=== PATIENT | female | born 1980 | race Caucasian/White ===

== ENCOUNTER → 2017-01-14 | Outpatient (CLI) | payer BC ==
[~2017-01-14] MED LIST: ACHD5005 PO; CIPR500T78 PO; HYDR-3816 PO; IBUP-1773 PO
== END | disposition home or self-care (01) ==
LOC: LAB 08:14
PROVIDERS: ATTEND Specialist
DX: Z32.00 Encounter for pregnancy test, result unknown (principal)
CPT/HCPCS: 36415; 84702

== ENCOUNTER → 2017-11-14 | Outpatient (CLI) | payer BC ==
[2017-11-14 13:20] LABS: PHOSPHORUS 3.5 MG/DL (2.3-4.7)
== END ==
LOC: LAB 12:39
PROVIDERS: ATTEND Specialist
DX: Z32.00 Encounter for pregnancy test, result unknown (principal)
CPT/HCPCS: 36415; 84100; 84144; 84702

== ENCOUNTER 2017-12-12 10:22 | Emergency (ER) | payer BC ==
[~2017-12-12] VITALS: Ht 160 cm; Wt 79.4 kg
--- OUTSIDE RECORDS SUMMARY | 2017-12-12 10:29 | XMS REPORT | Continuity of Care Document ---
Author Author [facility] Organization [facility] Address Unknown Phone Unavailable Allergies Active Description Code Type Severity Reaction Onset Reported/Identified Relationship to Patient Clinical Status Yes No Known Drug Allergies [id number] Drug Allergy Unknown N/A 01/21/2015 Yes morphine [id number] Drug Allergy Unknown NAUSEA 01/31/2015 Medications There is no data. Problems Date Dx Coded Attending Type Code Diagnosis Diagnosed By 11/15/2014 FARHEEN LEACH DO Ot 625.8 11/15/2014 FARHEEN LEACH DO Ot 626.2 01/21/2015 FARHEEN LEACH DO Ot 625.8 01/21/2015 FARHEEN LEACH DO Ot 626.2 01/21/2015 FARHEEN LEACH DO Ot 620.2 01/21/2015 BRIAN WISE MD Ot 599.0 URIN TRACT INFECTION NOS 01/21/2015 BRIAN WISE MD Ot 620.2 OVARIAN CYST NEC/NOS 01/21/2015 BRIAN WISE MD Ot 789.04 ABDOMINAL PAIN, LEFT LOWER QUADRANT 01/21/2015 FARHEEN LEACH DO Ot 625.8 01/21/2015 FARHEEN LEACH DO Ot 626.2 01/21/2015 FENECH FARHEEN ENNIS Ot 620.2 01/21/2015 FENECH DOFARHEEN Ot 620.2 01/31/2015 FENECH FARHEEN ENNIS Ot 625.8 01/31/2015 FENECH DOFARHEEN Ot 626.2 01/31/2015 FENECH FARHEEN ENNIS Ot 620.2 02/06/2015 FARHEEN LEACH DO Ot 617.1 OVARIAN ENDOMETRIOSIS 02/06/2015 FARHEEN LEACH DO Ot 617.3 PELV PERIT ENDOMETRIOSIS 02/07/2015 FARHEEN LEACH DO Ot 625.8 02/07/2015 DARRELLECH FARHEEN ENNIS Ot 626.2 02/07/2015 FARHEEN LEACH DO Ot 620.2 02/07/2015 HAYLEE DOFARHEEN Ot 620.8 02/07/2015 DARRELLECH DO, FARHEEN Gonzalez Ot V72.83 02/09/2015 FARHEEN LEACH DO Ot 285.1 AC POSTHEMORRHAG ANEMIA 02/09/2015 FARHEEN LEACH DO Ot 568.81 HEMOPERITONEUM 04/09/2016 HAYLEE ENNIS, FARHEEN Gonzalez Ot 625.8 FEM GENITAL SYMPTOMS NEC 04/09/2016 HAYLEE DOFARHEEN Ot 626.2 EXCESSIVE MENSTRUATION 04/09/2016 DARRELLECH DO, FARHEEN Gonzalez Ot 620.2 OVARIAN CYST NEC/NOS 04/09/2016 DARRELLECH DO, FARHEEN Gonzalez Ot 620.8 NONINFL DIS OVA/ADNX NEC 04/09/2016 HAYLEE ENNIS, FARHEEN Gonzalez Ot V72.83 EXAM PRE-OPERATIVE NEC 04/27/2016 FARHEEN LEACH DO Ot Z00.00 ENCNTR FOR GENERAL ADULT MEDICAL EXAM W/ 04/28/2016 FARHEEN LEACH DO Ot R10.2 PELVIC AND PERINEAL PAIN 07/28/2016 HAYLEE ENNIS, FARHEEN Gonzalez Ot 625.8 FEM GENITAL SYMPTOMS NEC 07/28/2016 HAYLEE DO, FARHEEN Gonzalez Ot 626.2 EXCESSIVE MENSTRUATION 07/28/2016 HAYLEE DO, FARHEEN Gonzalez Ot 620.2 OVARIAN CYST NEC/NOS 07/28/2016 DARRELLECH DO, FARHEEN Gonzalez Ot 620.8 NONINFL DIS OVA/ADNX NEC 07/28/2016 DARRELLECH DO, FARHEEN Gonzalez Ot V72.83 EXAM PRE-OPERATIVE NEC 07/28/2016 FARHEEN LEACH DO Ot R10.2 PELVIC AND PERINEAL PAIN 07/28/2016 HAYLEE ENNIS, FARHEEN Gonzalez Ot Z00.00 ENCNTR FOR GENERAL ADULT MEDICAL EXAM W/ 08/03/2016 DEANNA KAM, PASCALE Mitchell Ot Z32.00 ENCOUNTER FOR TEST, RESULT UNK 08/06/2016 DEANNA KAM, PASCALE Mitchell Ot Z32.00 ENCOUNTER FOR TEST, RESULT UNK 08/18/2016 DEANNA KAM, PASCALE Mitchell Ot Z32.00 ENCOUNTER FOR TEST, RESULT UNK 01/16/2017 DEANNA KAM, PASCALE Mitchell Ot Z32.00 ENCOUNTER FOR TEST, RESULT UNK 01/27/2017 DEANNA KAM, PASCALE Mitchell Ot Z32.00 ENCOUNTER FOR TEST, RESULT UNK 11/17/2017 DEANNA KAM, PASCALE Mitchell Ot Z32.00 ENCOUNTER FOR TEST, RESULT UNK 11/30/2017 DEANNA KAM, PASCALE Mitchell Ot Z32.00 ENCOUNTER FOR TEST, RESULT UNK Procedures Code Description Performed By Performed On 54.19 LAPAROTOMY NEC 02/07/2015 Results Test Result Range Complete blood count (CBC) with automated white blood cell (WBC) differential - 04/09/16 12:52 Blood leukocytes automated count (number/volume) 8.2 10*3/uL 4.3-11.0 Blood erythrocytes automated count (number/volume) 4.64 10*6/uL 4.35-5.85 Venous blood hemoglobin measurement (mass/volume) 14.2 g/dL 11.5-16.0 Blood hematocrit (volume fraction) 42 % 35-52 Automated erythrocyte mean corpuscular volume 90 [foz_us] 80-99 Automated erythrocyte mean corpuscular hemoglobin (mass per erythrocyte) 31 pg 25-34 Automated erythrocyte mean corpuscular hemoglobin concentration measurement ( mass/volume) 34 g/dL 32-36 Automated erythrocyte distribution width ratio 12.4 % 10.0-14.5 Automated blood platelet count (count/volume) 285 10*3/uL 130-400 Automated blood platelet mean volume measurement 10.0 [foz_us] 7.4-10.4 Automated blood neutrophils/100 leukocytes 64 % 42-75 Automated blood lymphocytes/100 leukocytes 25 % 12-44 Blood monocytes/100 leukocytes 7 % 0-12 Automated blood eosinophils/100 leukocytes 3 % 0-10 Automated blood basophils/100 leukocytes 1 % 0-10 Blood neutrophils automated count (number/volume) 5.3 10*3 1.8-7.8 Blood lymphocytes automated count (number/volume) 2.1 10*3 1.0-4.0 Blood monocytes automated count (number/volume) 0.6 10*3 0.0-1.0 Automated eosinophil count 0.2 10*3/uL 0.0-0.3 Automated blood basophil count (count/volume) 0.1 10*3/uL 0.0-0.1 Comprehensive metabolic panel - 04/09/16 12:52 Serum or plasma sodium measurement (moles/volume) 139 mmol/L 135-145 Serum or plasma potassium measurement (moles/volume) 4.3 mmol/L 3.6-5.0 Serum or plasma chloride measurement (moles/volume) 105 mmol/L 98-107 Carbon dioxide 27 mmol/L 21-32 Serum or plasma anion gap determination (moles/volume) 7 mmol/L 5-14 Serum or plasma urea nitrogen measurement (mass/volume) 10 mg/dL 7-18 Serum or plasma creatinine measurement (mass/volume) 0.80 mg/dL 0.60-1.30 Serum or plasma urea nitrogen/creatinine mass ratio 13 NRG Serum or plasma creatinine measurement with calculation of estimated glomerular filtration rate > NRG Serum or plasma glucose measurement (mass/volume) 80 mg/dL 70-105 Serum or plasma calcium measurement (mass/volume) 9.4 mg/dL 8.5-10.1 Serum or plasma total bilirubin measurement (mass/volume) 0.7 mg/dL 0.1-1.0 Serum or plasma alkaline phosphatase measurement (enzymatic activity/volume) 48 U/L 40-136 Serum or plasma aspartate aminotransferase measurement (enzymatic activity/ volume) 22 U/L 5-34 Serum or plasma alanine aminotransferase measurement (enzymatic activity/volume ) 21 U/L 0-55 Serum or plasma protein measurement (mass/volume) 7.1 g/dL 6.4-8.2 Serum or plasma albumin measurement (mass/volume) 4.3 g/dL 3.2-4.5 Lipid 1996 panel - 04/09/16 12:52 Serum or plasma triglyceride measurement (mass/volume) 69 mg/dL <150 Serum or plasma cholesterol measurement (mass/volume) 173 mg/dL < 200 Serum or plasma cholesterol in HDL measurement (mass/volume) 57 mg/ dL 40-60 Cholesterol in LDL [mass/volume] in serum or plasma by direct assay 105 mg/dL 1-129 Serum or plasma cholesterol in VLDL measurement (mass/volume) 14 mg/ dL 5-40 Hemoglobin A1c - 04/09/16 12:52 Hemoglobin A1c 4.8 % 4.5-6.2 THYROID STIMULATING HORMONE - 04/09/16 12:52 THYROID STIMULATING HORMONE 1.24 u[iU]/mL 0.35-4.94 Serum or plasma choriogonadotropin measurement (units/volume) - 07/28/16 11:00 Serum or plasma choriogonadotropin measurement (units/volume) 2469 m [iU]/mL <5 Serum or plasma progesterone measurement (mass/volume) - 07/28/16 11:00 Serum or plasma progesterone measurement (mass/volume) 29.90 % NRG Serum or plasma choriogonadotropin measurement (units/volume) - 01/14/17 08:26 Serum or plasma choriogonadotropin measurement (units/volume) < m[iU ]/mL <5 Serum or plasma phosphate measurement (mass/volume) - 11/14/17 12:56 Serum or plasma phosphate measurement (mass/volume) 3.5 mg/dL 2.3-4.7 Serum or plasma choriogonadotropin measurement (units/volume) - 11/14/17 12:56 Serum or plasma choriogonadotropin measurement (units/volume) 1905 m [iU]/mL <5 Serum or plasma progesterone measurement (mass/volume) - 11/14/17 14:24 Serum or plasma progesterone measurement (mass/volume) 45.06 ng/mL NRG Encounters ACCT No. Visit Date/Time Discharge Status Pt. Type Provider Facility Loc./Unit Complaint [id number] 11/14/2017 12:39:00 11/14/2017 23:59:59 CLS Outpatient PASCALE HUERTA MD [facility] LAB SEE ORDER [id number] 01/14/2017 08:14:00 01/14/2017 23:59:59 CLS Outpatient PASCALE HUERTA MD [facility] LAB 232.00 [id number] 07/28/2016 10:43:00 07/28/2016 23:59:59 CLS Outpatient PASCALE HUERTA MD [facility] LAB Z32.00 [id number] 04/14/2016 14:17:00 04/14/2016 23:59:59 CLS Outpatient FARHEEN LEACH DO [facility] RAD ACUTE PELVIC PAIN [id number] 04/09/2016 12:32:00 04/09/2016 23:59:59 CLS Outpatient FARHEEN LEACH DO [facility] LAB GENERAL ADULT MEDICAL EXAM W/O ABNORMAL FINDINGS [id number] 02/07/2015 01:05:00 02/09/2015 08:13:00 DIS Inpatient FARHEEN LEACH DO [facility] LDRP HEMOPERITONEUM,POST OP LAPAROSCOPIC RSO [id number] 02/06/2015 06:58:00 02/06/2015 16:35:00 DIS Outpatient FARHEEN LEACH DO [facility] SDC RIGHT COMPLEX OVARIAN MASS [id number] 01/31/2015 08:37:00 01/31/2015 23:59:59 CLS Outpatient FARHEEN LEACH DO [facility] PREOP RIGHT COMPLEX OVARIAN MASS [id number] 01/21/2015 11:05:00 01/21/2015 14:08:00 DIS Emergency FRANDY KAM, BRIAN Anderson [facility] ER ABD CRAMPS [id number] 12/23/2014 10:10:00 12/23/2014 23:59:59 CLS Outpatient FARHEEN LEACH DO [facility] RAD OVARIAN CYST [id number] 10/31/2014 13:36:00 10/31/2014 23:59:59 CLS Outpatient FARHEEN LEACH DO [facility] RAD PELVIC PRESSURE, MENORRHAGIA
[2017-12-12] MEDS ORDERED: fentaNYL INJECTION 100 MCG/2 ML AMP ONE (11:46)
[2017-12-12 11:47] LABS: BASOPHILS # (AUTO) 0.1 10^3/uL (0.0-0.1); BASOPHILS % (AUTO) 1 % (0-10); EOSINOPHILS # (AUTO) 0.3 10^3/uL (0.0-0.3); EOSINOPHILS % (AUTO) 3 % (0-10); HEMATOCRIT 42 % (35-52); HEMOGLOBIN 14.4 G/DL (11.5-16.0); LYMPHOCYTES # (AUTO) 1.7 X 10^3 (1.0-4.0); LYMPHOCYTES % (AUTO) 16 % (12-44); MEAN CORPUSCULAR HEMOGLOBIN 31 PG (25-34); MEAN CORPUSCULAR HGB CONC 34 G/DL (32-36); MEAN CORPUSCULAR VOLUME 91 FL (80-99); MEAN PLATELET VOLUME 10.3 FL (7.4-10.4); MONOCYTES # (AUTO) 0.8 X 10^3 (0.0-1.0); MONOCYTES % (AUTO) 8 % (0-12); NEUTROPHILS # (AUTO) 7.6 X 10^3 (1.8-7.8); NEUTROPHILS % (AUTO) 72 % (42-75); PLATELET COUNT 358 10^3/uL (130-400); RED BLOOD COUNT 4.66 10^6/uL (4.35-5.85); RED CELL DISTRIBUTION WIDTH 12.3 % (10.0-14.5); WHITE BLOOD COUNT 10.5 10^3/uL (4.3-11.0)
[2017-12-12] MEDS ORDERED: fentaNYL INJECTION 100 MCG/2 ML AMP IVP ONE ×2 (12:00→14:00)
[2017-12-12 12:06] LABS: ALANINE AMINOTRANSFERASE 15 U/L (0-55); ALBUMIN 4.1 GM/DL (3.2-4.5); ALKALINE PHOSPHATASE 51 U/L (40-136); BILIRUBIN,TOTAL 0.4 MG/DL (0.1-1.0); BUN/CREATININE RATIO 11; CALCIUM 9.5 MG/DL (8.5-10.1); CARBON DIOXIDE 25 MMOL/L (21-32); CHLORIDE 108 MMOL/L (98-107); CREATININE SERUM 0.89 MG/DL (0.60-1.30); GFR ESTIMATED > 60; GLUCOSE 82 MG/DL (70-105); POTASSIUM 3.8 MMOL/L (3.6-5.0); SODIUM 141 MMOL/L (135-145); TOTAL PROTEIN 7.5 GM/DL (6.4-8.2)
--- NOTE | 2017-12-12 13:49 | Diagnostic Imaging Report ---
PROCEDURE: US OB SINGLE FETUS <14 WKS. TECHNIQUE: Multiple real-time grayscale images were obtained over the gravid uterus in various projections. INDICATION: Bleeding. History of embryo transfer in October 2017. COMPARISON: Pelvic ultrasound of 04/14/2016. FINDINGS: There is no intrauterine . The endometrium measures approximately 0.8 cm in thickness. No myometrial mass. There is no mass in either adnexa. The right ovary is not well seen. The left ovary is surgically absent per history. No free pelvic fluid. IMPRESSION: 1. No intrauterine or ectopic . 2. Findings are compatible with patient's reported miscarriage/failed . Dictated by: Dictated on workstation # [id number]
[2017-12-12] MEDS ORDERED: ONDANSETRON 4 MG/2 ML (SDV) Z0FRAN IVP ONE (14:00)
--- NOTE | 2017-12-12 15:02 | ED GU-Female ---
General Chief Complaint: -Female Stated Complaint: HAVING MISSCARIAGE, PAIN Nursing Triage Note: PT STATED SHE HAD EMBRYO TRANSLPLANTED ON 10/28. HAS HAD 4 ULTRASOUNDS SINCE AND ALL HAVE SHOWN NO BABY. PT STATES SHE BEGAN SPOTTING ON TUESDAY, AND BLEEDING AND PASSING CLOTS ON TUESDAY. PT STATES PAIN STARTED AROUND 1300 TUESDAY. PT STATES THE BLEEDING IS MINIMAL BUT DID PASS A CLOT THE SIZE OF HER PALM. PT IS DOING IVF IN [facility]. DOES NOT HAVE LOCAL DR. Nursing Sepsis Screen: No Definite Risk Source: patient Exam Limitations: no limitations History of Present Illness Date Seen by Provider: December 12, 2017 Time Seen by Provider: 11:35 Initial Comments This 37-year-old woman presents to the emergency room with vaginal bleeding and suspected miscarriage. She had an embryo transplant by her infertility specialist, Dr. Huerta on October 28. Since that time she has had for ultrasounds, none of which showed an embryo. She began spotting on Tuesday and Tuesday began bleeding. She passed a large clot last night. Today she began heavily cramping and rates her pain as 8/10. She also has had some nausea and vomiting. She had a temperature of 100.1 as well. Allergies and Home Medications Allergies Coded Allergies: morphine (Unverified Adverse Reaction, Unknown, NAUSEA, 01/31/15) Home Medications Hydrocodone Bit/Acetaminophen 1 Tab Tab, 2 TAB PO Q4H PRN for severe pain Prescribed by: FARHEEN GUTIERREZ on 02/06/15 1233 Hydrocodone/Acetaminophen 1 Each Tablet, 1 EACH PO Q4H PRN for PAIN-MODERATE TO SEVERE Prescribed by: BRITTANIE HORNER on 12/12/17 1516 Ibuprofen 600 Mg Tablet, 600 MG PO Q6H Prescribed by: FARHEEN GUTIERREZ on 02/06/15 1233 Ondansetron 4 Mg Tab.rapdis, 4 MG SL Q4H PRN for NAUSEA/VOMITING-1ST LINE Prescribed by: BRITTANIE HORNER on 12/12/17 1516 Patient Home Medication List Home Medication List Reviewed: Yes Review of Systems Constitutional: see HPI EENTM: no symptoms reported Respiratory: no symptoms reported Cardiovascular: no symptoms reported Gastrointestinal: see HPI Genitourinary: see HPI : Yes Musculoskeletal: no symptoms reported Skin: no symptoms reported Psychiatric/Neurological: No Symptoms Reported Endocrine: No Symptoms Reported Hematologic/Lymphatic: No Symptoms Reported Past Dtlbuhc-Ovfvmi-Imfwzv Hx Patient Social History Alcohol Use: Denies Use Recreational Drug Use: No 2nd Hand Smoke Exposure: No Recent Foreign Travel: No Contact w/Someone Who Travel: No Recent Infectious Disease Expo: No Physical Abuse: No Sexual Abuse: No Past Medical History Surgeries: Yes (OVARIAN CYSTECTOMY, gastric sleeve) Oophorectomy (Right) Respiratory: Yes Asthma Cardiac: No Neurological: No : Yes Reproductive Disorders: Yes (RIGHT COMPLEX OVARIAN MASS) Female Reproductive Disorders: Endometriosis, Ovarian Cyst Genitourinary: No Gastrointestinal: No Musculoskeletal: No Endocrine: No Cancer: No Psychosocial: No Nursing Suicide Risk Score: 0 Integumentary: No Eczema Blood Disorders: No Family Medical History Completed stroke Grandparents (Paternal Grandmother) Deafness or hearing loss Grandparents (Maternal Grandfather-Deafness bilaterally due to Scarlet Fever) Diabetes mellitus 19 MOTHER (Type 2) Grandparents (Paternal Grandfather) Hypertension 19 MOTHER No Pertinent Family Hx Patient is post op 10 hours from Laparoscopic RSO, for a complex ovarian mass. She reports that pain continued to worsen after discharge home, bringing her back to hospital. I was notified by Dr. Quispe that there was a significant hematoperitoneum on CT exam, as well as a significant hgb drop. 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/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: 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 II-XII nml as tested, no motor/sensory deficits, alert, normal mood/affect, oriented x 3 Skin: normal color, warm/dry Progress/Results/Core Measures Suspected Sepsis Recent Fever Within 48 Hours: Yes Infection Criteria Present: None New/Unexplained Altered Menta: No Sepsis Screen: No Definite Risk SIRS Temperature:100.1 Pulse: 56 Respiratory Rate: 20 Laboratory Tests 12/12/17 11:41: White Blood Count 10.5 Blood Pressure 142 /92 Mean: 109 Laboratory Tests 12/12/17 11:41: Creatinine 0.89, Platelet Count 358, Total Bilirubin 0.4 Results/Orders Lab Results Laboratory Tests Test 12/12/17 11:41 Range/Units White Blood Count 10.5 4.3-11.0 10^3/uL Red Blood Count 4.66 4.35-5.85 10^6/uL Hemoglobin 14.4 11.5-16.0 G/DL Hematocrit 42 35-52 % Mean Corpuscular Volume 91 80-99 FL Mean Corpuscular Hemoglobin 31 25-34 PG Mean Corpuscular Hemoglobin Concent 34 32-36 G/DL Red Cell Distribution Width 12.3 10.0-14.5 % Platelet Count 358 130-400 10^3/uL Mean Platelet Volume 10.3 7.4-10.4 FL Neutrophils (%) (Auto) 72 42-75 % Lymphocytes (%) (Auto) 16 12-44 % Monocytes (%) (Auto) 8 0-12 % Eosinophils (%) (Auto) 3 0-10 % Basophils (%) (Auto) 1 0-10 % Neutrophils # (Auto) 7.6 1.8-7.8 X 10^3 Lymphocytes # (Auto) 1.7 1.0-4.0 X 10^3 Monocytes # (Auto) 0.8 0.0-1.0 X 10^3 Eosinophils # (Auto) 0.3 0.0-0.3 10^3/uL Basophils # (Auto) 0.1 0.0-0.1 10^3/uL Sodium Level 141 135-145 MMOL/L Potassium Level 3.8 3.6-5.0 MMOL/L Chloride Level 108 H 98-107 MMOL/L Carbon Dioxide Level 25 21-32 MMOL/L Anion Gap 8 5-14 MMOL/L Blood Urea Nitrogen 10 7-18 MG/DL Creatinine 0.89 0.60-1.30 MG/DL Estimat Glomerular Filtration Rate > 60 BUN/Creatinine Ratio 11 Glucose Level 82 70-105 MG/DL Calcium Level 9.5 8.5-10.1 MG/DL Total Bilirubin 0.4 0.1-1.0 MG/DL Aspartate Amino Transf (AST/SGOT) 16 5-34 U/L Alanine Aminotransferase (ALT/SGPT) 15 0-55 U/L Alkaline Phosphatase 51 40-136 U/L C-Reactive Protein High Sensitivity 0.10 0.00-0.50 MG/DL Total Protein 7.5 6.4-8.2 GM/DL Albumin 4.1 3.2-4.5 GM/DL Human Chorionic Gonadotropin, Quant 8412 H <5 MIU/ML My Orders Orders - BRITTANIE FRANCISCO MD Cbc With Automated Diff (12/12/17 11:36) Comprehensive Metabolic Panel (12/12/17 11:36) Hs C Reactive Protein (12/12/17 11:36) Hcg,Quantitative (12/12/17 11:36) Saline Lock/Iv-Start (12/12/17 11:36) Fentanyl Injection (Sublimaze Injection (12/12/17 11:46) Fentanyl Injection (Sublimaze Injection (12/12/17 12:00) Rh Immune Globulin Rhophylac (12/12/17 12:46) Rhogam Administration (12/12/17 12:46) Us Ob Single Fetus<14 [id number] (12/12/17 12:46) Fentanyl Injection (Sublimaze Injection (12/12/17 14:00) Ondansetron Injection (Zofran Injectio (12/12/17 14:00) Medications Given in ED Current Medications Medications Dose Ordered Sig/William Route Start Time Stop Time Status Last Admin Dose Admin Fentanyl Citrate 50 mcg ONCE ONCE IVP 12/12/17 14:00 12/12/17 14:01 DC 12/12/17 13:56 50 MCG Fentanyl Citrate 100 mcg STK-MED ONCE .ROUTE 12/12/17 11:46 12/12/17 11:50 DC 12/12/17 11:54 50 MCG Ondansetron HCl 4 mg ONCE ONCE IVP 12/12/17 14:00 12/12/17 14:01 DC 12/12/17 13:56 4 MG Vital Signs/I&O 12/12/17 12/12/17 11:05 15:09 Temp 100.1 98.5 Pulse 56 68 Resp 20 14 B/P (MAP) 142/92 (109) 137/97 Pulse Ox 100 O2 Delivery Room Air Room Air Capillary Refill : Less Than 3 Seconds Blood Pressure Mean: 109 Progress Note : Progress Note Workup was relatively unremarkable. Case was reviewed with Dr. Gutierrez who recommended ultrasound for completeness of evaluation. Ultrasound was performed and showed no intrauterine or ectopic . HCG on November 14 was 1905. Today it was 8412. This was not an appropriate rise for a normal developing . Patient appears to have had miscarriage. She will follow up with Dr. Gutierrez in the clinic. RhoGAM was administered in the ER. Departure Impression Primary Impression: Miscarriage Disposition: HOME, SELF-CARE Condition: Improved Departure-Patient Inst. Decision time for Depature: 14:50 Referrals: FARHEEN GUTIERREZ DO (PCP) Primary Care Physician PASCALE HUERTA MD (Family) Primary Care Physician Patient Instructions: Miscarriage Add. Discharge Instructions: You may take Tylenol (acetaminophen) and/or ibuprofen for pain. Follow-up with your obstetrical provider as soon as possible. You'll need a repeat hCG test performed sometime in the next week. Return to the emergency room if you having worsening symptoms including worsening pain All discharge instructions reviewed with patient and/or family. Voiced understanding. Scripts Hydrocodone/Acetaminophen (Hydrocodone-Acetamin 5-325 mg) 1 Each Tablet 1 EACH PO Q4H PRN for PAIN-MODERATE TO SEVERE, #8 TAB Prov: BRITTANIE FRANCISCO MD 12/12/17 Ondansetron (Zofran Odt) 4 Mg Tab.rapdis 4 MG SL Q4H PRN for NAUSEA/VOMITING-1ST LINE, #10 TAB Prov: BRITTANIE FRANCISCO MD 12/12/17 Copy Copies To 1: FARHEEN GUTIERREZ JOSHUA T MD December 12, 2017 15:02
[2017-12-12 15:09] VITALS: BP 137/97
[2017-12-12] MEDS ORDERED: ONDA4TAB8 SL (15:16)
[2017-12-12] MEDS ORDERED: HYDR-3812 PO (15:16)
== END 2017-12-12 15:09 | disposition home or self-care (01) ==
LOC: EDUNIT# 10:22 → ER 10:25
DX: O03.9 Complete or unspecified spontaneous abortion without complication (principal); O99.511 Diseases of the respiratory system complicating pregnancy, first trimester; J45.909 Unspecified asthma, uncomplicated; Z87.448 Personal history of other diseases of urinary system; Z98.84 Bariatric surgery status; Z90.6 Acquired absence of other parts of urinary tract; Z90.721 Acquired absence of ovaries, unilateral; Z88.5 Allergy status to narcotic agent; Z98.890 Other specified postprocedural states; Z3A.00 Weeks of gestation of pregnancy not specified
CPT/HCPCS: 36415; 76801; 80053; 84702; 85025; 86141; 96374; 96375; 96376

== ENCOUNTER → 2018-01-04 | Outpatient (CLI) | payer BC ==
[~2018-01-04] MED LIST changes: +HYDR-3812 PO; +ONDA4TAB8 SL
--- NOTE | 2018-01-04 17:53 | Diagnostic Imaging Report ---
INDICATION: Acute pelvic pain. EXAMINATION: Pelvic sonogram. TECHNIQUE: Transabdominal and endovaginal scanning of the pelvis was performed. FINDINGS: The uterus measures 8.2 x 5.6 x 3.8 cm. The endometrial stripe is 19 mm. The right-side of the endometrial cavity near the uterine fundus is more thickened and has some retained fluid and increased vascularity. The right ovary is surgically absent. The left ovary has a 2.8 cm cyst with low-level internal echoes. IMPRESSION: Complex left ovarian cyst. Thickened and hyperemic endometrium in the right fundal region. This may be residual from an embryo transfer, but a gestational sac is not seen. Dictated by: Dictated on workstation # [id number]
== END ==
LOC: RAD 16:26
PROVIDERS: ATTEND Obstetrics & Gynecology
DX: N83.202 Unspecified ovarian cyst, left side (principal); N80.0 Endometriosis of uterus
CPT/HCPCS: 76830; 76856

== ENCOUNTER 2018-06-12 06:52 | Outpatient (CLI) | payer BC ==
[~2018-06-12] VITALS: Ht 160 cm; Wt 79.4 kg
[2018-06-12] MEDS ORDERED: CHOL200085 PO (13:44)
[2018-06-12] MEDS ORDERED: PNV1TABL81 PO (13:44)
[2018-06-15] MEDS ORDERED: IBUP-1773 PO (10:33)
== END 2018-06-12 13:54 | disposition home or self-care (01) ==
LOC: PREOP 06:52
PROVIDERS: ATTEND Obstetrics & Gynecology
DX: Z01.818 Encounter for other preprocedural examination (principal)

== ENCOUNTER 2018-06-15 09:42 | Day surgery (SDC) | payer BC ==
[~2018-06-15] VITALS: Ht 160 cm; Wt 79.4 kg
[~2018-06-15 09:42] MED LIST changes: +CHOL200085 PO; +PNV1TABL81 PO
--- OUTSIDE RECORDS SUMMARY | 2018-06-15 09:45 | XMS REPORT | Continuity of Care Document ---
Author Author [facility] Organization [facility] Address Unknown Phone Unavailable Allergies Active Description Code Type Severity Reaction Onset Reported/Identified Relationship to Patient Clinical Status Yes No Known Drug Allergies [id number] Drug Allergy Unknown N/A 01/21/2015 Yes morphine [id number] Drug Allergy Unknown NAUSEA 01/31/2015 Medications There [...] OVARIAN CYST NEC/NOS 07/28/2016 DARRELLECH DO, FARHEEN Gnozalez Ot 620.8 NONINFL DIS OVA/ADNX NEC 07/28/2016 [...] Ot Z32.00 ENCOUNTER FOR TEST, RESULT UNK 12/12/2017 BRITTANIE FRANCISCO MD Ot J45.909 UNSPECIFIED ASTHMA, UNCOMPLICATED 12/12/2017 BRITTANIE FRANCISCO MD Ot O03.9 COMPLETE OR UNSP SPONTANEOUS [place] 12/12/2017 BRITTANIE FRANCISCO MD Ot O99.511 DISEASES OF THE RESP SYS COMP , 12/12/2017 BRITTANIE FRANCISCO MD Ot Z3A.00 WEEKS OF GESTATION OF NOT SPEC 12/12/2017 BRITTANIE FRANCISCO MD Ot Z87.448 PERSONAL HISTORY OF OTHER DISEASES OF UR 12/12/2017 BRITTANIE FRANCISCO MD Ot Z88.5 ALLERGY STATUS TO NARCOTIC AGENT STATUS 12/12/2017 BRITTANIE FRANCISCO MD Ot Z90.6 ACQUIRED ABSENCE OF OTHER PARTS OF URINA 12/12/2017 BRITTANIE FRANCISCO MD Ot Z90.721 ACQUIRED ABSENCE OF OVARIES, UNILATERAL 12/12/2017 BRITTANIE FRANCISCO MD Ot Z98.84 BARIATRIC SURGERY STATUS 12/12/2017 BRITTANIE FRANCISCO MD Ot Z98.890 OTHER SPECIFIED POSTPROCEDURAL STATES 12/14/2017 BRITTANIE FRANCISCO MD, Ot J45.909 UNSPECIFIED ASTHMA, UNCOMPLICATED 12/14/2017 BRITTANIE FRANCISCO MD Ot O03.9 COMPLETE OR UNSP SPONTANEOUS WI 12/14/2017 BRITTANIE FRANCISCO MD Ot O99.511 DISEASES OF THE RESP SYS COMP , 12/14/2017 BRITTANIE FRANCISCO MD Ot Z3A.00 WEEKS OF GESTATION OF NOT SPEC 12/14/2017 BRITTANIE FRANCISCO MD Ot Z87.448 PERSONAL HISTORY OF OTHER DISEASES OF UR 12/14/2017 BRITTANIE FRANCISCO MD Ot Z88.5 ALLERGY STATUS TO NARCOTIC AGENT STATUS 12/14/2017 BRITTANIE FRANCISCO MD Ot Z90.6 ACQUIRED ABSENCE OF OTHER PARTS OF URINA 12/14/2017 MARYAM KAM, BRITTANIE Freed Ot Z90.721 ACQUIRED ABSENCE OF OVARIES, UNILATERAL 12/14/2017 MARYAM KAM, BRITTANIE Freed Ot Z98.84 BARIATRIC SURGERY STATUS 12/14/2017 MARYAM KAM, BRITTANIE Freed Ot Z98.890 OTHER SPECIFIED POSTPROCEDURAL STATES 01/05/2018 FENECH DO, FARHEEN S Ot N80.0 ENDOMETRIOSIS OF UTERUS 01/05/2018 FENECH DO, FARHEEN S Ot N83.202 UNSPECIFIED OVARIAN CYST, LEFT SIDE 01/19/2018 FENECH DO, FARHEEN S Ot N80.0 ENDOMETRIOSIS OF UTERUS 01/19/2018 FENECH DO, FARHEEN S Ot N83.202 UNSPECIFIED OVARIAN CYST, LEFT SIDE 06/12/2018 FENECH DO, FARHEEN S Ot Z01.818 ENCOUNTER FOR OTHER PREPROCEDURAL EXAMIN 06/14/2018 DARRELLECH DOFARHEEN S Ot Z01.818 ENCOUNTER FOR OTHER PREPROCEDURAL EXAMIN Procedures Code Description Performed By Performed On [...] plasma progesterone measurement (mass/volume) 45.06 ng/mL NRG Complete blood count (CBC) with automated white blood cell (WBC) differential - 12/12/17 11:41 Blood leukocytes automated count (number/volume) 10.5 10*3/uL 4.3-11.0 Blood erythrocytes automated count (number/volume) 4.66 10*6/uL 4.35-5.85 Venous blood hemoglobin measurement (mass/volume) 14.4 g/dL 11.5-16.0 Blood hematocrit (volume fraction) 42 % 35-52 Automated erythrocyte mean corpuscular volume 91 [foz_us] 80-99 Automated erythrocyte mean corpuscular hemoglobin (mass per erythrocyte) 31 pg 25-34 Automated erythrocyte mean corpuscular hemoglobin concentration measurement ( mass/volume) 34 g/dL 32-36 Automated erythrocyte distribution width ratio 12.3 % 10.0-14.5 Automated blood platelet count (count/volume) 358 10*3/uL 130-400 Automated blood platelet mean volume measurement 10.3 [foz_us] 7.4-10.4 Automated blood neutrophils/100 leukocytes 72 % 42-75 Automated blood lymphocytes/100 leukocytes 16 % 12-44 Blood monocytes/100 leukocytes 8 % 0-12 Automated blood eosinophils/100 leukocytes 3 % 0-10 Automated blood basophils/100 leukocytes 1 % 0-10 Blood neutrophils automated count (number/volume) 7.6 10*3 1.8-7.8 Blood lymphocytes automated count (number/volume) 1.7 10*3 1.0-4.0 Blood monocytes automated count (number/volume) 0.8 10*3 0.0-1.0 Automated eosinophil count 0.3 10*3/uL 0.0-0.3 Automated blood basophil count (count/volume) 0.1 10*3/uL 0.0-0.1 Comprehensive metabolic panel - 12/12/17 11:41 Serum or plasma sodium measurement (moles/volume) 141 mmol/L 135-145 Serum or plasma potassium measurement (moles/volume) 3.8 mmol/L 3.6-5.0 Serum or plasma chloride measurement (moles/volume) 108 mmol/L 98-107 Carbon dioxide 25 mmol/L 21-32 Serum or plasma anion gap determination (moles/volume) 8 mmol/L 5-14 Serum or plasma urea nitrogen measurement (mass/volume) 10 mg/dL 7-18 Serum or plasma creatinine measurement (mass/volume) 0.89 mg/dL 0.60-1.30 Serum or plasma urea nitrogen/creatinine mass ratio 11 NRG Serum or plasma creatinine measurement with calculation of estimated glomerular filtration rate > NRG Serum or plasma glucose measurement (mass/volume) 82 mg/dL 70-105 Serum or plasma calcium measurement (mass/volume) 9.5 mg/dL 8.5-10.1 Serum or plasma total bilirubin measurement (mass/volume) 0.4 mg/dL 0.1-1.0 Serum or plasma alkaline phosphatase measurement (enzymatic activity/volume) 51 U/L 40-136 Serum or plasma aspartate aminotransferase measurement (enzymatic activity/ volume) 16 U/L 5-34 Serum or plasma alanine aminotransferase measurement (enzymatic activity/volume ) 15 U/L 0-55 Serum or plasma protein measurement (mass/volume) 7.5 g/dL 6.4-8.2 Serum or plasma albumin measurement (mass/volume) 4.1 g/dL 3.2-4.5 Serum or plasma choriogonadotropin measurement (units/volume) - 12/12/17 11:41 Serum or plasma choriogonadotropin measurement (units/volume) 8412 m [iU]/mL <5 Serum or plasma C reactive protein measurement (mass/volume) - 12/12/17 11:41 Serum or plasma C reactive protein measurement (mass/volume) 0.10 mg /dL 0.00-0.50 RH IMMUNE GLOBULIN RHOPHYLAC - 12/12/17 12:46 RH IMMUNE GLOBULIN RHOPHYLAC TRANSFUSED 12/12/17 1313 NRG [id number] - 12/12/17 12:46 [id number] 300ug NRG Lot number - 12/12/17 12:46 Lot number [id number] NRG cell screen - 12/12/17 12:46 cell screen 07/22/19 NRG Encounters ACCT No. Visit Date/Time Discharge Status Pt. Type Provider Facility Loc./Unit Complaint [id number] 06/12/2018 06:52:00 06/12/2018 13:54:00 DIS Outpatient FARHEEN LEACH DO [facility] PREOP ENDOCERVICAL POLYP [id number] 01/04/2018 16:26:00 01/04/2018 23:59:59 CLS Outpatient FARHEEN LEACH DO [facility] RAD ACUTE PELVIC PAIN [id number] 12/12/2017 10:25:00 12/12/2017 15:09:00 DIS Emergency MARYAM KAM, BRITTANIE Freed [facility] ER HAVING MISCARRIAGE, PAIN [id number] 11/14/2017 12:39:00 11/14/2017 23:59:59 CLS Outpatient PASCALE HUERTA MD [facility] LAB SEE ORDER [id number] 01/14/2017 08:14:00 01/14/2017 23:59:59 CLS Outpatient PASCALE HUERTA MD [facility] LAB 232.00 [id number] 07/28/2016 10:43:00 07/28/2016 23:59:59 CLS Outpatient PASCALE HUERTA MD [facility] LAB Z32.00 [id number] 04/14/2016 14:17:00 04/14/2016 23:59:59 CLS Outpatient FARHEEN LEACH DO [facility] RAD ACUTE PELVIC PAIN [id number] 04/09/2016 12:32:00 04/09/2016 23:59:59 CLS Outpatient FARHEEN LEACH DO [facility] LAB GENERAL ADULT MEDICAL EXAM W/O ABNORMAL FINDINGS [id number] 02/07/2015 01:05:00 02/09/2015 08:13:00 DIS Inpatient FARHEEN LEACH DO [facility] LDRP HEMOPERITONEUM,POST OP LAPAROSCOPIC RSO [id number] 02/06/2015 06:58:00 02/06/2015 16:35:00 DIS Outpatient FARHEEN LEACH DO [facility] SDC RIGHT COMPLEX OVARIAN MASS [id number] 01/31/2015 08:37:00 01/31/2015 23:59:59 CLS Outpatient FARHEEN LEACH DO [facility] PREOP RIGHT COMPLEX OVARIAN MASS [id number] 01/21/2015 11:05:00 01/21/2015 14:08:00 DIS Emergency BRIAN WISE MD [facility] ER ABD CRAMPS [id number] 12/23/2014 10:10:00 12/23/2014 23:59:59 CLS Outpatient FARHEEN LEACH DO [facility] RAD OVARIAN CYST [id number] 10/31/2014 13:36:00 10/31/2014 23:59:59 CLS Outpatient FARHEEN LEACH DO [facility] RAD PELVIC PRESSURE, MENORRHAGIA [id number] 06/13/2018 15:11:00 Document Registration
[2018-06-15 10:20] LABS: BASOPHILS # (AUTO) 0.1 10^3/uL (0.0-0.1); BASOPHILS % (AUTO) 1 % (0-10); EOSINOPHILS # (AUTO) 0.2 10^3/uL (0.0-0.3); EOSINOPHILS % (AUTO) 3 % (0-10); HEMATOCRIT 40 % (35-52); HEMOGLOBIN 13.2 G/DL (11.5-16.0); LYMPHOCYTES % (AUTO) 27 % (12-44); MEAN CORPUSCULAR HEMOGLOBIN 30 PG (25-34); MEAN CORPUSCULAR HGB CONC 33 G/DL (32-36); MEAN CORPUSCULAR VOLUME 90 FL (80-99); MONOCYTES # (AUTO) 0.7 X 10^3 (0.0-1.0); MONOCYTES % (AUTO) 9 % (0-12); NEUTROPHILS # (AUTO) 4.3 X 10^3 (1.8-7.8); NEUTROPHILS % (AUTO) 60 % (42-75); PLATELET COUNT 388 10^3/uL (130-400); RED BLOOD COUNT 4.47 10^6/uL (4.35-5.85); RED CELL DISTRIBUTION WIDTH 13.9 % (10.0-14.5); WHITE BLOOD COUNT 7.2 10^3/uL (4.3-11.0)
[2018-06-15] MEDS: LACTATED RINGERS 1,000 ML IV PRN ×3 (10:20→12:36)
[2018-06-15 10:30] VITALS: BP 133/82
[2018-06-15] MEDS ORDERED: D5 LR IV SOLUTION 1,000 ML IV SCH (10:31)
--- NOTE | 2018-06-15 10:31 | Progress Note-Pre Operative ---
Pre-Operative Progress Note H&P Reviewed The H&P was reviewed, patient examined and no changes noted. Date Seen by Provider: Jun 15, 2018 Time Seen by Provider: 10:30 Date H&P Reviewed: Jun 15, 2018 Time H&P Reviewed: 10:30 Pre-Operative Diagnosis: Endometrial polyp, AUB FARHEEN LAECH DO Jun 15, 2018 10:31 am
[2018-06-15] MEDS ORDERED: IBUP-1773 PO (10:33)
--- NOTE | 2018-06-15 10:34 | Discharge Inst-Women's Service ---
Discharge Inst-Women's Serv Depart Medication/Instructions New, Converted or Re-Newed RX: RX on Chart Consults/Follow Up Additional Follow Up: Yes Orders/Referrals DR. Leach in 2-3 weeks Activity Activity: Activity as Tolerated Driving Instructions: You May Drive NO SMOKING: NO SMOKING Nothing Inside Vagina: No Douching, No [place], No Tampons Diet Discharge Diet: No Restrictions Symptoms to Report to : Bleeding Excessive, Pain Increased, Fever Over 101 Degrees F, Vaginal Bleeding Increase, Questions/Concerns For Any Problems or Questions: Contact Your Physician FARHEEN LEACH DO Jun 15, 2018 10:34 am
[2018-06-15] MEDS ORDERED: ONDANSETRON 4 MG/2 ML (SDV) Z0FRAN ONE ×2 (10:38→12:03)
[2018-06-15] MEDS ORDERED: SCOPOLAMINE 1.5 MG (TRANSDERM-SCOP) PATCH ONE (10:38)
[2018-06-15] MEDS ORDERED: FAMOTIDINE 20MG/2ML IV (PEPCID) ONE (10:38)
[2018-06-15] MEDS ORDERED: ONDANSETRON 4 MG/2 ML (SDV) Z0FRAN IV ONE (10:45)
[2018-06-15] MEDS ORDERED: KETOROLAC 30 MG/ML VIAL IVP ONE (10:45)
[2018-06-15] MEDS ORDERED: SCOPOLAMINE 1.5 MG (TRANSDERM-SCOP) PATCH TOP ONE (10:45)
[2018-06-15] MEDS ORDERED: HYDROcodone/APAP 5 MG/325 MG (LORTAB) TAB PO PRN (10:45)
[2018-06-15] MEDS ORDERED: FAMOTIDINE 20MG/2ML IV (PEPCID) IV ONE (10:45)
[2018-06-15] MEDS ORDERED: ONDANSETRON 4 MG/2 ML (SDV) Z0FRAN IVP PRN ×2 (10:45→12:45)
[2018-06-15] MEDS ORDERED: MIDAZOLAM 2 MG/2 ML (VERSED) VIAL ONE (11:34)
[2018-06-15] MEDS ORDERED: fentaNYL INJECTION 100 MCG/2 ML AMP ONE (11:35)
[2018-06-15] MEDS ORDERED: BUPIVACAINE 0.25% 30 ML (SENSORCAINE) VIAL ONE (11:42)
[2018-06-15] MEDS ORDERED: DEXAMETHASONE 10 MG/ML (DECADRON) 1 ML VIAL ONE (12:03)
[2018-06-15] MEDS ORDERED: proPOfol 200 MG/20 ML (DIPRIVAN) VIAL IV ONE (12:03)
[2018-06-15] MEDS ORDERED: LIDOCAINE PF 2% 5 ML (XYLOCAINE) VIAL ONE (12:03)
[2018-06-15] MEDS ORDERED: PROPOFOL INJECTION 50 ML IV ONE (12:03)
[2018-06-15] MEDS ORDERED: KETOROLAC 30 MG/ML VIAL ONE ×2 (12:12→12:28)
[2018-06-15] MEDS ORDERED: HYDROmorphone 2 MG/ML VIAL (DILAUDID) IV ONE (12:45)
[2018-06-15] MEDS ORDERED: MEPERIDINE (DEMEROL) INJ 50 MG/ML IVP ONE (12:45)
[2018-06-15] MEDS ORDERED: PROMETHAZINE INJ 25 MG/ML (PHENERGAN) AMP IVP ONE (12:45)
[2018-06-15 13:30] VITALS: BP 116/92
[2018-06-15 14:00] VITALS: BP 110/75
--- NOTE | 2018-06-15 14:06 | Anesthesia-General Post-Op ---
General Patient Condition Mental Status/LOC: Same as Preop Cardiovascular: Satisfactory Nausea/Vomiting: Absent Respiratory: Satisfactory Pain: Controlled Complications: Absent Post Op Complications Complications None Follow Up Care/Instructions Patient Instructions None needed. Anesthesia/Patient Condition Patient Condition Patient is doing well, no complaints, stable vital signs, no apparent adverse anesthesia problems. No complications reported per nursing. AYSHA QUICK CRNA Jun 15, 2018 14:06
[2018-06-15 14:30] VITALS: BP 113/70
[2018-06-15 14:50] VITALS: BP 113/70
--- NOTE | 2018-06-15 15:02 | OPERATIVE REPORT ---
DATE OF SERVICE: PREOPERATIVE DIAGNOSES: 1. A 38-year-old female with abnormal uterine bleeding. 2. Endometrial polyp on ultrasound with endometrial thickening. POSTOPERATIVE DIAGNOSES: 1. A 38-year-old female with abnormal uterine bleeding. 2. Endometrial polyp on ultrasound with endometrial thickening. PROCEDURES PERFORMED: Hysteroscopic resection of endometrial polyp with Ankita. SURGEON: Stu Gutierrez DO. ANESTHESIA: General endotracheal. ESTIMATED BLOOD LOSS: Minimal. URINE OUTPUT: Straight urine drained. FLUIDS: 1000 mL of lactated Ringer solution. FINDINGS: A grossly normal endometrial cavity with an endometrial polyp protruding from the uterine fundus to the patient's right side. Bilateral patent tubal ostia. Grossly normal-appearing external female genitalia. SPECIMEN SENT: Endometrial tissue. INDICATION FOR PROCEDURE: This 38-year-old female is the patient I had seen in my office, who was noted to have thickened endometrial lining on ultrasound. 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 Ultrasound noted an endometrial polyp in place. Therefore, we discussed resection of endometrial polyp under anesthesia with Ankita. Risks of the procedure were discussed with the patient in detail including risk of bleeding, infection, damage to the surrounding structures including, but not limited to the uterus, fallopian tubes, loss of fertility, risk of bleeding and even . After everything was discussed with the patient in detail, consent was obtained in the preoperative area and the patient taken to the operating room. DESCRIPTION OF PROCEDURE: Once in the operating room, general anesthesia was found to be adequate, placed in dorsal lithotomy position, prepped and draped in a normal sterile fashion. I first attempted to drain the bladder. There was a trace amount of urine emptied at that point. I then placed a weighted speculum in the patient's vagina. A right angle retractor was used to visualize the cervix, which was grasped at 12 o'clock position using a long Allis clamp. The uterine cavity then sounded to a depth of approximately 7 to 8 cm. I then gently dilated the cervix using Hegar dilators to approximately 4 to 5 mm, which allows me to place the hysteroscope. I placed the hysteroscope after I performed a paracervical block at 3 and 9 o'clock positions on the cervix using 0.25% Marcaine, 5 mL were used at each injection site. Care was taken to aspirate before injecting. Once I introduced my hysteroscope, I used normal saline as my visual medium, able to visualize the polyp running down the posterior uterine wall arising from the fundus on the right. Using my resectoscope, I was able to resect the polyp off the posterior uterine wall and able to document with photo documentation that I have removed it and that the remainder of the uterine cavity appears to be homogenous and within normal limits at which point, I was done with the procedure. I performed a gentle curettage using a medium curette. Scant amount of tissue was achieved due to how gentle I am with curetting at that point. There is little to no bleeding noted from the cervix at that point. All the instruments were removed from the patient's vagina. The patient tolerated the procedure well and was sent to the recovery area in stable condition. Lap and sponge counts were correct at the end of the procedure. Instrument counts were correct as well. Job ID: [id number] DocumentID: [id number] Dictated Date: 06/15/2018 12:46:13 Sonography Technologist Date: 06/15/2018 15:01:37 Dictated By: DO MOE CARRERA
== END 2018-06-15 14:50 | disposition home or self-care (01) ==
LOC: SDC 09:42
PROVIDERS: ATTEND Obstetrics & Gynecology
DX: N84.0 Polyp of corpus uteri (principal); E28.2 Polycystic ovarian syndrome; J45.909 Unspecified asthma, uncomplicated; Z79.899 Other long term (current) drug therapy
CPT/HCPCS: 36415; 84703; 85025; 86850; 86900; 86901; 87081; 88305; 94664

== ENCOUNTER 2018-12-14 05:45 | Outpatient (CLI) | payer BC ==
[~2018-12-14] VITALS: Ht 160 cm; Wt 85.7 kg
[~2018-12-14 05:45] MED LIST changes: +CHOL200014 PO; -CHOL200085 PO
[2018-12-14] MEDS ORDERED: CHOL500049 PO (09:56)
[2018-12-14] MEDS ORDERED: ALPR0.254 PO (09:56)
[2018-12-15] MEDS ORDERED: IBUP-1773 PO (08:29)
[2018-12-15] MEDS ORDERED: ALPR0.254 PO (08:29)
[2018-12-15] MEDS ORDERED: HYDR-4226 PO (08:29)
== END 2018-12-14 10:21 | disposition home or self-care (01) ==
LOC: PREOP 05:45
PROVIDERS: ATTEND Obstetrics & Gynecology
DX: Z01.818 Encounter for other preprocedural examination (principal)

== ENCOUNTER 2018-12-15 06:51 | Day surgery (SDC) | payer BC ==
[~2018-12-15] VITALS: Ht 160 cm; Wt 85.7 kg
[2018-12-15] VITALS (9 sets, daily range): BP systolic 26–136; BP diastolic 51–95
[~2018-12-15 06:51] MED LIST changes: +ALPR0.254 PO; +CHOL500049 PO
--- OUTSIDE RECORDS SUMMARY | 2018-12-15 06:58 | XMS REPORT | Continuity of Care Document ---
Author Organization Unknown Address Unknown Allergies Active Description Code Type Severity Reaction Onset Reported/Identified Relationship to Patient Clinical Status Yes No Known Drug Allergies [id number] Drug Allergy Unknown N/A 01/21/2015 Yes morphine [id number] Drug Allergy Unknown NAUSEA 01/31/2015 Medications There is no data. Problems Date Dx Coded Attending Type Code Diagnosis Diagnosed By 11/15/2014 FARHEEN LEACH DO Ot 625.8 11/15/2014 FARHEEN LEACH DO Ot 626.2 01/21/2015 FARHEEN LEACH DO Ot 625.8 01/21/2015 FARHEEN LEACH DO Ot 626.2 01/21/2015 FARHEEN LEACH DO Ot 620.2 01/21/2015 FRANDY KAM, BRIAN Anderson Ot 599.0 URIN TRACT INFECTION NOS 01/21/2015 BRIAN WISE MD Ot 620.2 OVARIAN CYST NEC/NOS 01/21/2015 FRANDY KAM, BRIAN Anderson Ot 789.04 ABDOMINAL PAIN, LEFT LOWER QUADRANT 01/21/2015 FARHEEN LEACH DO Ot 625.8 01/21/2015 FARHEEN LEACH DO Ot 626.2 01/21/2015 FENECH FARHEEN ENNIS Ot 620.2 01/21/2015 FENECH FARHEEN ENNIS Ot 620.2 01/31/2015 FENECH FARHEEN ENNIS Ot 625.8 01/31/2015 FENECH DOFARHEEN Ot 626.2 01/31/2015 FENECH FARHEEN ENNIS Ot 620.2 02/06/2015 FARHEEN LEACH DO Ot 617.1 OVARIAN ENDOMETRIOSIS 02/06/2015 FARHEEN LEACH DO Ot 617.3 PELV PERIT ENDOMETRIOSIS 02/07/2015 FARHEEN LEACH DO Ot 625.8 02/07/2015 FARHEEN LEACH DO Ot 626.2 02/07/2015 FENECH FARHEEN ENNIS Ot 620.2 02/07/2015 FARHEEN LEACH DO Ot 620.8 02/07/2015 DARRELLECH DO, FARHEEN Gonzalez Ot V72.83 02/09/2015 FARHEEN LEACH DO Ot 285.1 AC POSTHEMORRHAG ANEMIA 02/09/2015 HAYLEE ENNIS, FARHEEN Gonzalez Ot 568.81 HEMOPERITONEUM 04/09/2016 HAYLEE ENNIS, FARHEEN Gonzalez Ot 625.8 FEM GENITAL SYMPTOMS NEC 04/09/2016 FARHEEN LEACH DO Ot 626.2 EXCESSIVE MENSTRUATION 04/09/2016 HAYLEE DO, FARHEEN Gonzalez Ot 620.2 OVARIAN CYST NEC/NOS 04/09/2016 DARRELLECH DO, FARHEEN Gonzalez Ot 620.8 NONINFL DIS OVA/ADNX NEC 04/09/2016 HAYLEE ENNIS, FARHEEN Gonzalez Ot V72.83 EXAM PRE-OPERATIVE NEC 04/27/2016 FARHEEN LEACH DO Ot Z00.00 ENCNTR FOR GENERAL ADULT MEDICAL EXAM W04/28/2016 FARHEEN LEACH DO Ot R10.2 PELVIC AND PERINEAL PAIN 07/28/2016 HAYLEE ENNIS FARHEEN Gonzalez Ot 625.8 FEM GENITAL SYMPTOMS NEC 07/28/2016 HAYLEE DO, FARHEEN Gonzalez Ot 626.2 EXCESSIVE MENSTRUATION 07/28/2016 HAYLEE DO, FARHEEN Gonzalez Ot 620.2 OVARIAN CYST NEC/NOS 07/28/2016 HAYLEE DO, FARHEEN Gonzalez Ot 620.8 NONINFL DIS OVA/ADNX NEC 07/28/2016 HAYLEE ENNIS, FARHEEN Gonzalez Ot V72.83 EXAM PRE-OPERATIVE NEC 07/28/2016 FARHEEN LEACH DO Ot R10.2 PELVIC AND PERINEAL PAIN 07/28/2016 HAYLEE ENNIS FARHEEN Gonzalez Ot Z00.00 ENCNTR FOR GENERAL ADULT MEDICAL EXAM W08/03/2016 DEANNA KAM, PASCALE Mitchell Ot Z32.00 ENCOUNTER FOR TEST, RESULT UNK 08/06/2016 DEANNA KAM, PASCALE Mitchell Ot Z32.00 ENCOUNTER FOR TEST, RESULT UNK 08/18/2016 PASCALE HUERTA MD Ot Z32.00 ENCOUNTER FOR TEST, RESULT UNK 01/16/2017 PASCALE HUERTA MD Ot Z32.00 ENCOUNTER FOR TEST, RESULT UNK 01/27/2017 PASCALE HUERTA MD Ot Z32.00 ENCOUNTER FOR TEST, RESULT UNK 11/17/2017 PASCALE HUERTA MD Ot Z32.00 ENCOUNTER FOR TEST, RESULT UNK [...] Ot Z98.890 OTHER SPECIFIED POSTPROCEDURAL STATES 01/05/2018 HAYLEE DOFARHEEN S Ot N80.0 ENDOMETRIOSIS OF UTERUS 01/05/2018 DARRELLECH DOFARHEEN S Ot N83.202 UNSPECIFIED OVARIAN CYST, LEFT SIDE 01/19/2018 DARRELLECH DOFARHEEN S Ot N80.0 ENDOMETRIOSIS OF UTERUS 01/19/2018 FENECH DO, FARHEEN S Ot N83.202 UNSPECIFIED OVARIAN CYST, LEFT SIDE 06/12/2018 HAYLEE DOFARHEEN S Ot Z01.818 ENCOUNTER FOR OTHER PREPROCEDURAL EXAMIN 06/14/2018 DARRELLDOE DOFARHEEN S Ot Z01.818 ENCOUNTER FOR OTHER PREPROCEDURAL EXAMIN 06/15/2018 DARRELLDOE DOFARHEEN S Ot E28.2 POLYCYSTIC OVARIAN SYNDROME 06/15/2018 HAYLEE DO FARHEEN S Ot J45.909 UNSPECIFIED ASTHMA, UNCOMPLICATED 06/15/2018 FENECH DO, FARHEEN S Ot N84.0 POLYP OF CORPUS UTERI 06/15/2018 HAYLEE DOFARHEEN S Ot Z79.899 OTHER SENIOR CARE (CURRENT) DRUG THERAPY 06/19/2018 DARRELLDOE DOFARHEEN S Ot 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 POLYCYSTIC OVARIAN SYNDROME 06/19/2018 FENECH DO FARHEEN S Ot J45.909 UNSPECIFIED ASTHMA, UNCOMPLICATED 06/19/2018 FENECH DOFARHEEN S Ot N84.0 POLYP OF CORPUS UTERI 06/19/2018 DARRELLECH DOFARHEEN S Ot Z79.899 OTHER SENIOR CARE (CURRENT) DRUG THERAPY 06/21/2018 FENECH DOFARHEEN S Ot 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 POLYCYSTIC OVARIAN SYNDROME 06/21/2018 FENECH DOFARHEEN S Ot J45.909 UNSPECIFIED ASTHMA, UNCOMPLICATED 06/21/2018 FENECH DO, FARHEEN S Ot N84.0 POLYP OF CORPUS UTERI 06/21/2018 FENECH DOFARHEEN S Ot Z79.899 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 SURGICAL 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 ASSISTANT (CURRENT) DRUG THERAPY Procedures Code Description Performed By Performed On [...] RH IMMUNE GLOBULIN RHOPHYLAC TRANSFUSED 12/12/17 1313 [facility] [id number] - 12/12/17 12:46 [id number] 300ug [facility] Lot number - 12/12/17 12:46 Lot number [id number] [facility] cell screen - 12/12/17 12:46 cell screen 07/22/19 NRG Urine beta human chorionic gonadotropin (hCG) measurement - 06/15/18 09:53 Urine beta human chorionic gonadotropin (hCG) measurement NEGATIVE NEGATIVE Complete blood count (CBC) with automated white blood cell (WBC) differential - 06/15/18 10:07 Blood leukocytes automated count (number/volume) 7.2 10*3/uL 4.3-11.0 Blood erythrocytes automated count (number/volume) 4.47 10*6/uL 4.35-5.85 Venous blood hemoglobin measurement (mass/volume) 13.2 g/dL 11.5-16.0 Blood hematocrit (volume fraction) 40 % 35-52 Automated erythrocyte mean corpuscular volume 90 [foz_us] 80-99 Automated erythrocyte mean corpuscular hemoglobin (mass per erythrocyte) 30 pg 25-34 Automated erythrocyte mean corpuscular hemoglobin concentration measurement ( mass/volume) 33 g/dL 32-36 Automated erythrocyte distribution width ratio 13.9 % 10.0-14.5 Automated blood platelet count (count/volume) 388 10*3/uL 130-400 Automated blood platelet mean volume measurement 10.0 [foz_us] 7.4-10.4 Automated blood neutrophils/100 leukocytes 60 % 42-75 Automated blood lymphocytes/100 leukocytes 27 % 12-44 Blood monocytes/100 leukocytes 9 % 0-12 Automated blood eosinophils/100 leukocytes 3 % 0-10 Automated blood basophils/100 leukocytes 1 % 0-10 Blood neutrophils automated count (number/volume) 4.3 10*3 1.8-7.8 Blood lymphocytes automated count (number/volume) 2.0 10*3 1.0-4.0 Blood monocytes automated count (number/volume) 0.7 10*3 0.0-1.0 Automated eosinophil count 0.2 10*3/uL 0.0-0.3 Automated blood basophil count (count/volume) 0.1 10*3/uL 0.0-0.1 Blood type T Indirect antibody screen panel - 06/15/18 10:07 ABO+Rh group AN NRG Transfusion band number [id number] NRG Blood group antibody screen NEGATIVE NRG Methicillin resistant Staphylococcus aureus (MRSA) screening culture - 10:08 Methicillin resistant Staphylococcus aureus (MRSA) screening culture NEG NRG Encounters ACCT No. Visit Date/Time Discharge Status Pt. Type Provider Facility Loc./Unit Complaint [id number] 06/15/2018 09:42:00 06/15/2018 14:50:00 DIS Outpatient FARHEEN LEACH DO [facility] SDC ENDOCERVICAL POLYP [id number] 06/12/2018 06:52:00 06/12/2018 13:54:00 DIS Outpatient FARHEEN LEACH DO [facility] PREOP ENDOCERVICAL POLYP [id number] 01/04/2018 16:26:00 01/04/2018 23:59:59 CLS Outpatient FARHEEN LEACH DO [facility] RAD ACUTE PELVIC PAIN [id number] 12/12/2017 10:25:00 12/12/2017 15:09:00 DIS Emergency MARYAM KAM, BRITTANIE Freed [facility] ER HAVING MISCARRIAGE, PAIN [id number] 11/14/2017 12:39:00 11/14/2017 23:59:59 CLS Outpatient PASCALE HUERTA MD [facility] LAB SEE ORDER [id number] 01/14/2017 08:14:00 01/14/2017 23:59:59 CLS Outpatient PASCALE HUERTA MD [facility] LAB 232.00 [id number] 07/28/2016 10:43:00 07/28/2016 23:59:59 CLS Outpatient PASCALE HUERTA MD [facility] LAB Z32.00 [id number] 04/14/2016 14:17:00 04/14/2016 23:59:59 CLS Outpatient FARHEEN LEACH DO [facility] RAD ACUTE PELVIC PAIN [id number] 04/09/2016 12:32:00 04/09/2016 23:59:59 CLS Outpatient FARHEEN LEACH DO [facility] LAB GENERAL ADULT MEDICAL EXAM W/O ABNORMAL FINDINGS [id number] 02/07/2015 01:05:00 02/09/2015 08:13:00 DIS Inpatient FARHEEN LEACH DO [facility] LDRP HEMOPERITONEUM,POST OP LAPAROSCOPIC RSO [id number] 02/06/2015 06:58:00 02/06/2015 16:35:00 DIS Outpatient FARHEEN LEACH DO [facility] SDC RIGHT COMPLEX OVARIAN MASS [id number] 01/31/2015 08:37:00 01/31/2015 23:59:59 CLS Outpatient FARHEEN LEACH DO [facility] PREOP RIGHT COMPLEX OVARIAN MASS [id number] 01/21/2015 11:05:00 01/21/2015 14:08:00 DIS Emergency FRANDY KAM, BRIAN Anderson [facility] ER ABD CRAMPS [id number] 12/23/2014 10:10:00 12/23/2014 23:59:59 CLS Outpatient FARHEEN LEACH DO [facility] RAD OVARIAN CYST [id number] 10/31/2014 13:36:00 10/31/2014 23:59:59 CLS Outpatient FARHEEN LEACH DO [facility] RAD PELVIC PRESSURE, MENORRHAGIA
[2018-12-15] MEDS ORDERED: LACTATED RINGERS 1,000 ML IV PRN (07:00)
[2018-12-15] MEDS ORDERED: proPOfol 200 MG/20 ML (DIPRIVAN) VIAL IV ONE (07:21)
[2018-12-15] MEDS ORDERED: ONDANSETRON 4 MG/2 ML (SDV) Z0FRAN ONE (07:21)
[2018-12-15] MEDS ORDERED: LIDOCAINE PF 2% 5 ML (XYLOCAINE) VIAL ONE (07:21)
[2018-12-15] MEDS ORDERED: SEVOFLURANE (ULTANE) 15 ML INHAL SOLN ONE ×3 (07:22→09:12)
[2018-12-15] MEDS ORDERED: fentaNYL INJECTION 100 MCG/2 ML AMP ONE (07:22)
[2018-12-15] MEDS ORDERED: DEXAMETHASONE 10 MG/ML (DECADRON) 1 ML VIAL ONE (07:22)
[2018-12-15] MEDS ORDERED: MIDAZOLAM 2 MG/2 ML (VERSED) VIAL ONE (07:22)
[2018-12-15 07:32] LABS: BASOPHILS # (AUTO) 0.1 10^3/uL (0.0-0.1); BASOPHILS % (AUTO) 1 % (0-10); EOSINOPHILS # (AUTO) 0.3 10^3/uL (0.0-0.3); EOSINOPHILS % (AUTO) 5 % (0-10); HEMATOCRIT 39 % (35-52); LYMPHOCYTES # (AUTO) 1.6 X 10^3 (1.0-4.0); LYMPHOCYTES % (AUTO) 26 % (12-44); MEAN CORPUSCULAR HEMOGLOBIN 29 PG (25-34); MEAN CORPUSCULAR HGB CONC 33 G/DL (32-36); MEAN CORPUSCULAR VOLUME 88 FL (80-99); MEAN PLATELET VOLUME 10.3 FL (7.4-10.4); MONOCYTES # (AUTO) 0.5 X 10^3 (0.0-1.0); MONOCYTES % (AUTO) 8 % (0-12); NEUTROPHILS # (AUTO) 3.7 X 10^3 (1.8-7.8); NEUTROPHILS % (AUTO) 59 % (42-75); PLATELET COUNT 299 10^3/uL (130-400); RED CELL DISTRIBUTION WIDTH 15.6 % (10.0-14.5); WHITE BLOOD COUNT 6.2 10^3/uL (4.3-11.0)
[2018-12-15] MEDS ORDERED: D5 LR IV SOLUTION 1,000 ML IV SCH (08:27)
--- NOTE | 2018-12-15 08:27 | Progress Note-Pre Operative ---
Pre-Operative Progress Note H&P Reviewed The H&P was reviewed, patient examined and no changes noted. Date Seen by Provider: December 15, 2018 Time Seen by Provider: 08:25 Date H&P Reviewed: December 15, 2018 Time H&P Reviewed: 08:25 Pre-Operative Diagnosis: Missed FARHEEN Quigley DO December 15, 2018 08:27
[2018-12-15] MEDS ORDERED: ALPR0.254 PO (08:29)
[2018-12-15] MEDS ORDERED: IBUP-1773 PO (08:29)
[2018-12-15] MEDS ORDERED: HYDR-4226 PO (08:29)
[2018-12-15] MEDS ORDERED: KETOROLAC 30 MG/ML VIAL IVP ONE (08:30)
[2018-12-15] MEDS ORDERED: ONDANSETRON 4 MG/2 ML (SDV) Z0FRAN IVP PRN ×2 (08:30→08:45)
--- NOTE | 2018-12-15 08:32 | Discharge Inst-Women's Service ---
Discharge Inst-Women's Serv Depart Medication/Instructions New, Converted or Re-Newed RX: RX on Chart Consults/Follow Up Additional Follow Up: Yes Orders/Referrals Dr. Leach in 3 weeks Activity Activity: Activity as Tolerated Driving Instructions: No Driving for 1 Week NO SMOKING: NO SMOKING Nothing Inside Vagina: No Douching, No [place], No Tampons Diet Discharge Diet: No Restrictions Symptoms to Report to : Bleeding Excessive, Pain Increased, Fever Over 101 Degrees F, Vaginal Bleeding Increase, Questions/Concerns For Any Problems or Questions: Contact Your Physician FARHEEN LEACH DO December 15, 2018 08:32
[2018-12-15] MEDS ORDERED: fentaNYL INJECTION 100 MCG/2 ML AMP IVP ONE (08:45)
[2018-12-15] MEDS ORDERED: MEPERIDINE (DEMEROL) INJ 50 MG/ML IVP ONE (08:45)
[2018-12-15] MEDS ORDERED: METHYLERGONOVINE 0.2 MG/ML (METHERGINE) AMP ONE (09:06)
[2018-12-15] MEDS ORDERED: HYDROcodone/APAP 5 MG/325 MG (LORTAB) TAB PO ONE (10:30)
--- NOTE | 2018-12-15 18:39 | OPERATIVE REPORT ---
DATE OF SERVICE: 12/15/2018 PREOPERATIVE DIAGNOSIS: A 38-year-old female with missed AB. POSTOPERATIVE DIAGNOSIS: A 38-year-old female with missed AB. PROCEDURE: Suction D and C. SURGEON: Farheen Leach DO ANESTHESIA: General endotracheal. ESTIMATED BLOOD LOSS: 400 mL. URINE OUTPUT: 100 mL clear drained at the end of procedure. FLUIDS: 800 mL of lactated Ringer solution. FINDINGS: Moderate amount of endometrial products of conception. Grossly normal-appearing external female genitalia. SPECIMENS SENT: Products of conception. INDICATIONS FOR PROCEDURE: A 38-year-old female is a patient of mine who [place] and was being cared for in that aspect as far as conceiving . However, she did come and see me for her first visit at which point no gestational sac was identified. For the sake of reassurance, we did wait 3 to 4 weeks to ensure that we did not just have incorrect dating at which point there was still noted to be no fetus within the gestational sac and a thickened endometrium, at which point fertility medications were recommended to be discontinued as had [place]. I discussed with the patient waiting for spontaneous miscarriage versus suction D and C. We did wait based on patient's request for about a week, at which point she does wished at this point to proceed with suction D and C. Risks of the procedure were discussed with the patient and her in the preoperative area prior to the procedure and after all her questions were answered, consent was obtained; the patient was taken to the operating room. OPERATIVE REPORT IN DETAIL: Once in the operating room, anesthesia was found to be adequate she was placed in dorsal lithotomy position, prepped and draped in normal sterile fashion. The bladder was first straight catheterized and emptied. Weighted speculum inserted in the patient's vagina. A right angle retractor was used to visualize the cervix, which was grasped at 12 o'clock position using a long Allis clamp. Uterine cavity depth was sounded and found to be approximately 10 cm. I then selected a 10 cm rigid suction curette, which there was some mild dilation of the cervix; therefore no dilation really has to be done; however, I do dilate with a 1 cm Hegar dilator to ensure that it will be placed without trauma. Once the suction curette is placed I activated the BlueCava suction device, pressure of 55 mmHg was obtained. I then on several different passes cleared the endometrial cavity of all of the debris and products of conception on several passes. This was done until bleeding slows down. There is still a small amount of bleeding noted after 3 or 4 passes with the suction curette. At that point, I performed a light gentle curetting of the endometrium using a medium size endometrial curette. 0 Vicryl sutures are also placed through 3 and 9 o'clock positions on the cervix to help slow down blood flow to the cervix and control postoperative bleeding after which there was still slight amount of bleeding noted, it has dropped off significantly. As an added measure I have anesthesia given 0.2 mg of Methergine IM to control bleeding as well. At that point there was no significant bleeding noted. All instruments were removed from the patient's vagina. The patient tolerated the procedure well and sent to recovery area in stable condition. Lap and sponge counts were correct at the end of the procedure. Instrument counts correct as well. Job ID: [id number] DocumentID: [id number] Dictated Date: 12/15/2018 10:27:21 Director Corporate Compliance Date: 12/15/2018 18:38:32 Dictated By: AFRHEEN LEACH DO
== END 2018-12-15 11:15 | disposition home or self-care (01) ==
LOC: SDC 06:51
PROVIDERS: ATTEND Obstetrics & Gynecology
DX: O02.1 Missed abortion (principal); O09.811 Supervision of pregnancy resulting from assisted reproductive technology, first trimester; Z3A.09 9 weeks gestation of pregnancy; J45.909 Unspecified asthma, uncomplicated; F41.9 Anxiety disorder, unspecified; Z98.84 Bariatric surgery status; Z79.899 Other long term (current) drug therapy
CPT/HCPCS: 36415; 85025; 86850; 86900; 86901; 87081; 88305; 94664

== ENCOUNTER → 2019-12-21 | Outpatient (CLI) | payer BC ==
[~2019-12-21] MED LIST changes: -HYDR-3812 PO; +HYDR-4226 PO
--- NOTE | 2019-12-21 12:51 | Diagnostic Imaging Report ---
PROCEDURE: US Non-ob pelvis comp/trans. TECHNIQUE: Multiple realtime grayscale images were obtained of the pelvis in various projections endovaginally. Transabdominal imaging was also performed. INDICATION: Irregular menses. Uterus is anteverted measuring 7.6 x 3.8 x 4.6 cm. Endometrium is 10 mm in thickness. No myometrial mass is identified. Right ovary is surgically absent. Left ovary measures 4.6 x 2.9 x 2.8 cm. Multiple cystic structures are seen within the left ovary. There is a somewhat elongated tubular cystic structure adjacent to left ovary which could represent a dilated fallopian tube. This measures 4.5 x 1.5 x 3.8 cm. There is blood flow to the left ovary. No free fluid is seen. IMPRESSION: 1. Elongated cystic structure adjacent to left ovary, perhaps owing to hydrosalpinx. There are several small left ovarian cyst present as well. No other significant abnormality is seen. Dictated by: Dictated on workstation # [id number]
== END ==
LOC: RAD 09:29
PROVIDERS: ATTEND Obstetrics & Gynecology
DX: N92.5 Other specified irregular menstruation (principal); N94.19 Other specified dyspareunia; N83.202 Unspecified ovarian cyst, left side; Z87.42 Personal history of other diseases of the female genital tract
CPT/HCPCS: 76830; 76856

== ENCOUNTER → 2020-01-15 | Outpatient (CLI) | payer BC ==
--- NOTE | 2020-01-15 14:01 | Diagnostic Imaging Report ---
INDICATION: Routine screening. COMPARISON: No prior mammograms are available for comparison. This is a baseline study. TECHNIQUE: 2D and 3D bilateral screening mammography was performed with CAD. FINDINGS: Scattered fibroglandular densities are identified bilaterally. No dominant mass or malignant appearing microcalcifications are seen. The axillae are unremarkable. IMPRESSION: No mammographic features suspicious for malignancy are identified. ACR BI-RADS Category 1: Negative. Result letter will be mailed to the patient. Note: At least 10% of breast cancer is not imaged by mammography. Dictated by: Dictated on workstation # [id number]
== END ==
LOC: RAD 09:28
PROVIDERS: ATTEND Obstetrics & Gynecology
DX: Z12.31 Encounter for screening mammogram for malignant neoplasm of breast (principal)
CPT/HCPCS: 77063; 77067